=== PATIENT | male | born 1990 | race Two or more races ===

== ENCOUNTER 2018-06-16 15:36 | Emergency (ER) | payer SELFPAY ==
[~2018-06-16] VITALS: Ht 175.3 cm; Wt 94.0 kg
[2018-06-16 19:54] VITALS: BP 105/68
== END 2018-06-16 19:54 | disposition home or self-care (01) ==
LOC: ER 15:36
DX: S52.122A Displaced fracture of head of left radius, initial encounter for closed fracture (principal); M25.422 Effusion, left elbow; F17.200 Nicotine dependence, unspecified, uncomplicated; W01.0XXA Fall on same level from slipping, tripping and stumbling without subsequent striking against object, initial encounter; Y93.89 Activity, other specified; Y92.89 Other specified places as the place of occurrence of the external cause
CPT/HCPCS: 29105; 73080; 73090; 99283; A4565